=== PATIENT | female | born 1940 | race Caucasian/White ===

== ENCOUNTER → 2022-11-29 | Outpatient (CLI) | payer MEDICARE ==
[2022-11-29 16:19] LABS: INR 0.9 (<1.2); Prothrombin Time 10.1 sec (9.0-12.0)
[2022-11-30 02:27] LABS: ALT 35 U/L (8-44); AST 21 U/L (13-35); Albumin 4.7 d/dL (3.8-4.9); Albumin/Globulin Ratio 1.52 Ratio (1.60-3.17); Alkaline Phosphatase 113 U/L (41-126); BUN/Creat Ratio 20.29 Ratio (12.00-20.00); Blood Urea Nitrogen 14.2 mg/dL (9.0-27.0); Calcium 10.3 mg/dL (8.7-10.3); Carbon Dioxide 23.9 mmol/L (21.6-31.8); Chloride 106 mmol/L (96-109); Globulin 3.1 d/dL (1.6-3.3); Glucose 119 mg/dL (70-110); Potassium 4.6 mmol/L (3.5-5.5); Sodium 143 mmol/L (135-145); Total Bilirubin 0.5 mg/dL (0.3-1.2); Total Protein 7.8 d/dL (6.2-8.2)
[2022-11-30 02:29] LABS: HCT 39.1 % (37.2-46.3); HGB 12.3 d/dL (12.0-15.0); MCH 30.8 pg (27.0-32.0); MCHC 31.5 d/dL (32.0-37.0); Mean Platelet Volume 9.7 FL (9.5-12.2); NRBC Per 100 WBC 0 X 10*3/uL (0.00-0.01); Platelet Count 265 X 10*3/uL (140-440); RBC 3.99 X 10*6/uL (4.10-5.20); RDW 14.8 % (11.5-14.5); WBC 5.83 X 10*3/uL (4.50-10.00)
[2022-11-30 03:15] LABS: Appearance,Urine Cloudy (Clear); Bilirubin,Urine Negative (Negative); Blood,Urine Negative (Negative); Color,Urine Yellow (Yellow); Ketones,Urine Negative (Negative); Nitrite,Urine Negative (Negative); PH, Urine 7.5; Specific Gravity,Urine 1.014 (1.001-1.030); Urobilinogen,Urine 0.2 E.U./DL
== END | disposition home or self-care (01) ==
LOC: LABPAT 14:34
PROVIDERS: ATTEND Orthopaedic Surgery
DX: Z01.812 Encounter for preprocedural laboratory examination (principal); M17.11 Unilateral primary osteoarthritis, right knee
CPT/HCPCS: 80053; 81001; 85027; 85610; 85730

== ENCOUNTER → 2023-02-15 | Outpatient (CLI) | payer MEDICARE ==
[2023-02-15 15:18] LABS: INR 0.9 (<1.2); Partial Thromboplastin Time 23.7 sec (22.0-30.0); Prothrombin Time 9.7 sec (9.0-12.0)
[2023-02-15 20:52] LABS: HCT 39.1 % (37.2-46.3); HGB 12.3 d/dL (12.0-15.0); MCH 31.2 pg (27.0-32.0); MCHC 31.5 d/dL (32.0-37.0); MCV 99.2 FL (80.0-97.0); Mean Platelet Volume 9.7 FL (9.5-12.2); NRBC Per 100 WBC 0 X 10*3/uL (0.00-0.01); Platelet Count 284 X 10*3/uL (140-440); RBC 3.94 X 10*6/uL (4.10-5.20); RDW 14.3 % (11.5-14.5)
[2023-02-15 21:35] LABS: ALT 167 U/L (8-44); AST 86 U/L (13-35); Albumin 4.8 d/dL (3.8-4.9); Albumin/Globulin Ratio 1.41 Ratio (1.60-3.17); Alkaline Phosphatase 548 U/L (41-126); BUN/Creat Ratio 20.71 Ratio (12.00-20.00); Blood Urea Nitrogen 14.5 mg/dL (9.0-27.0); Calcium 10.9 mg/dL (8.7-10.3); Carbon Dioxide 23.2 mmol/L (21.6-31.8); Chloride 105 mmol/L (96-109); Globulin 3.4 d/dL (1.6-3.3); Glucose 126 mg/dL (70-110); Potassium 4.3 mmol/L (3.5-5.5); Sodium 142 mmol/L (135-145); Total Bilirubin 0.5 mg/dL (0.3-1.2); Total Protein 8.2 d/dL (6.2-8.2)
[2023-02-15 21:52] LABS: Appearance,Urine Clear (Clear); Bilirubin,Urine Negative (Negative); Blood,Urine Negative (Negative); Color,Urine Yellow (Yellow); Ketones,Urine Negative (Negative); Nitrite,Urine Negative (Negative); Specific Gravity,Urine 1.008 (1.001-1.030); Urobilinogen,Urine 0.2 E.U./DL
== END | disposition home or self-care (01) ==
LOC: LABPAT 11:53
PROVIDERS: ATTEND Orthopaedic Surgery
DX: Z01.812 Encounter for preprocedural laboratory examination (principal); M17.11 Unilateral primary osteoarthritis, right knee
CPT/HCPCS: 80053; 81003; 85027; 85610; 85730; 87070

== ENCOUNTER → 2023-09-26 | Outpatient (CLI) | payer MEDICARE ==
[2023-09-26 11:29] LABS: INR 0.9 (<1.2); Partial Thromboplastin Time 23.6 sec (22.0-30.0)
[2023-09-26 21:07] LABS: ALT 20 U/L (8-44); AST 21 U/L (13-35); Albumin 4.5 g/dL (3.8-4.9); Albumin/Globulin Ratio 1.41 Ratio (1.60-3.17); Alkaline Phosphatase 127 U/L (41-126); BUN/Creat Ratio 17.38 Ratio (12.00-20.00); Blood Urea Nitrogen 13.9 mg/dL (9.0-27.0); Calcium 10.5 mg/dL (8.7-10.3); Carbon Dioxide 24.8 mmol/L (21.6-31.8); Chloride 106 mmol/L (96-109); Globulin 3.2 g/dL (1.6-3.3); Glucose 108 mg/dL (70-110); Potassium 4.5 mmol/L (3.5-5.5); Sodium 142 mmol/L (135-145); Total Bilirubin 0.4 mg/dL (0.3-1.2); Total Protein 7.7 g/dL (6.2-8.2)
[2023-09-27 04:21] LABS: HCT 38.8 % (37.2-46.3); HGB 12.4 g/dL (12.0-15.0); MCH 31.3 pg (27.0-32.0); Mean Platelet Volume 9.5 FL (9.5-12.2); NRBC Per 100 WBC 0 X 10*3/uL (0.00-0.01); Platelet Count 261 X 10*3/uL (140-440); RBC 3.96 X 10*6/uL (4.10-5.20); RDW 13.3 % (11.5-14.5); WBC 3.73 X 10*3/uL (4.50-10.00)
== END | disposition home or self-care (01) ==
LOC: LABPAT 10:40
PROVIDERS: ATTEND Orthopaedic Surgery
DX: Z01.812 Encounter for preprocedural laboratory examination (principal); Z22.322 Carrier or suspected carrier of Methicillin resistant Staphylococcus aureus; M17.11 Unilateral primary osteoarthritis, right knee
CPT/HCPCS: 36415; 80053; 85027; 85610; 85730; 87070

== ENCOUNTER 2023-10-23 07:32 | Day surgery (SDC) | payer MEDICARE ==
[~2023-10-23 07:32] MED LIST: HYDROmorphone 0.5 MG/0.5 ML SYRINGE IVP PRN; LIDOCAINE 1% (10MG/ML) FOR IV START INTRADERMA PRN; TRANEXAMIC 1,000 MG/100ML-NACL 1,000 MG in SALINE 1 100ML.BAG IVPB PRN
[2023-10-23] MEDS: LACTATED RINGERS 1,000 ML IV SCH (07:56)
[2023-10-23 08:19] LABS: Glucose,Whole Blood 97 mg/dL (70-110)
[2023-10-23] MEDS: ONDANSETRON 4 MG/2 ML VIAL IVP ONE (08:29)
[2023-10-23] MEDS: GABAPENTIN 300 MG CAP PO PRN (08:29)
[2023-10-23] MEDS: ACETAMINOPHEN TAB 500 MG TAB PO PRN (08:29)
[2023-10-23] MEDS: MELOXICAM 7.5 MG TAB PO PRN (08:29)
[2023-10-23] MEDS: DEXAMETHASONE SOD PHOSPHATE 4 MG/ML 1 ML VIAL IVP ONE (08:29)
[2023-10-23] MEDS: MIDAZOLAM 2 MG/2 ML VIAL IVP ONE (08:39)
[2023-10-23] MEDS ORDERED: HYDROmorphone 0.5 MG/0.5 ML SYRINGE IVP PRN ×3 (08:50)
[2023-10-23] MEDS ORDERED: NA PHOS,M-B/NA PHOS,DI-BA 133 ML ENEMA RECTAL PRN (08:50)
[2023-10-23] MEDS ORDERED: MAGNESIUM HYDROXIDE 2,400 MG/30 ML CUP PO PRN (08:50)
[2023-10-23] MEDS ORDERED: bisacodyL 10 MG SUPP RECTAL PRN (08:50)
[2023-10-23] MEDS ORDERED: ONDANSETRON 4 MG/2 ML VIAL IVP PRN (08:50)
[2023-10-23] MEDS ORDERED: NALOXONE 0.4 MG/ML 1 ML VIAL IV PRN (08:50)
[2023-10-23] MEDS ORDERED: ROPIVACAINE 1,100 MG, SODIUM CHLORIDE 0.9% 500 ML 330 ML, EMPTY PAIN BALL 1 EACH MISCELLANE PRN (09:02)
--- NOTE | 2023-10-23 09:02 | P.ANPRN ---
Procedure Note - Anesthesia - Nerve Block Performed Right Adductor Canal Infusion Time Out Performed: Yes (837) Date of Procedure: 10/23/23 Location of Patient: PreOp Indication: Acute Post-Operative Pain, Dx/Pain Location (Right knee), Requested by Surgeon Specifically requested for management of pain by : Andres Porter Sedation Type: Sedate with meaningful contact maintained Preparation: Sterile Prep, Sterile Dressing Position: Supine Catheter: Indwelling Needle Types: Pajunk Needle Gauge: 18 Ultrasound used to visualize needle placement: Yes Ultrasound used to observe medication spread: Yes Injectate: 0.5% Ropivacaine (see comment for volume) (20 mL +10 mL of normal saline) Blood Aspirated: No Pain Paresthesia on Injection Noted: No Resistance on Injection: Normal Image Stored and Saved: Yes Events: Uneventful and Well Tolerated Right iPack Single Time Out Performed: Yes (837) Date of Procedure: 10/23/23 Location of Patient: PreOp Indication: Acute Post-Operative Pain, Dx/Pain Location (Right knee), Requested by Surgeon Specifically requested for management of pain by DrChristiano: Andres Porter Sedation Type: Sedate with meaningful contact maintained Preparation: Sterile Prep Position: Left Lateral Catheter: None Needle Types: Pajunk Needle Gauge: 21 (100 mm) Ultrasound used to visualize needle placement: Yes Ultrasound used to observe medication spread: Yes Injectate: 0.5% Ropivacaine (see comment for volume) (20 CC +10 mL of normal saline) Blood Aspirated: No Pain Paresthesia on Injection Noted: No Resistance on Injection: Normal Image Stored and Saved: Yes Events: Uneventful and Well Tolerated
[2023-10-23] MEDS ORDERED: MIDAZOLAM 2 MG/2 ML VIAL ONE (09:06)
[2023-10-23] MEDS ORDERED: SODIUM CHLORIDE 0.9% (PF) 10 ML VIAL ONE (09:06)
[2023-10-23] MEDS ORDERED: fentaNYL (PF) 50 MCG/ML 2 ML AMP ONE (09:06)
[2023-10-23] MEDS ORDERED: TRANEXAMIC 1,000 MG/100ML-NACL PREMIX BAG ONE (09:06)
[2023-10-23] MEDS ORDERED: ePHEDrine 50 MG/ML 1 ML VIAL ONE (09:06)
[2023-10-23] MEDS ORDERED: ROPIVACAINE 5 MG/ML 30 ML VIAL ONE (09:06)
[2023-10-23] MEDS: ceFAZolin 1,000 MG in SODIUM CHLORIDE 0.9% 1,000 ML IRRIGATION ONE (09:38)
--- NOTE | 2023-10-23 10:23 | P.OP ---
Date of Procedure: 10/23/23 Preoperative Diagnosis: severe osteoarthritis right knee Postoperative Diagnosis: severe osteoarthritis right knee Procedure(s) Performed: right total knee arthroplasty Implants: King [employer] Nephew Journey II CR Oxinium cruciate retaining femoral component size 5, right King [employer] Nephew Journey nonporous tibial baseplate size 4, right King [employer]hew Journey II, XLPE Deep Dished articular insert, size 9 mm, Size 3- 4, right King [employer] Nephew Journey Ela II resurfacing patellar component, oval, 29 mm All components were cemented using Palacos R bone cement The articulation is Oxinium on polyethylene Anesthesia: spinal Surgeon: Andres Porter Alligator Trapper #1: Lenka Fraser Estimated Blood Loss (ml): 50 Pathology: none sent Condition: stable Disposition: PACU Indications for Procedure: The patient's knee is end-stage, and conservative management has failed. The operation of knee replacement has been discussed at length in the office, as well as potential risks and complications. These are inclusive of, but not limited to: Infection, bleeding, scarring, discomfort, stiffness, blood vessel and nerve damage, need for further surgery, failure to relieve symptoms, persistence, recurrence, or worsening of problems, loosening, dislocation, wear, blood clot, pulmonary embolism, , gait dysfunction, stiffness, and other risks as discussed in the office. Patient elects to proceed and the consent form has been signed. Operative Findings: the operative findings are consistent with severe osteoarthritis of the right knee Description of Procedure: The patient was seen in the preoperative area, the consent was reviewed and the operative site was marked with a skin marker. The patient verified the procedure and the operative site. An adductor canal pain catheter and an iPACK block were placed by anesthesia in the preoperative area. The patient was then brought to the operating room and positioned on the operating room table in the supine position. Preoperative antibiotics and a gram of tranexamic acid were given intravenously. A spinal anesthetic was administered by the anesthesia department. Care was taken to make sure that all pressure points were adequately padded. A tourniquet was placed on the upper thigh and the lower extremity was prepped with ChloraPrep and draped in usual sterile fashion. A universal time-out was then performed which confirmed the patient's name, surgical site, ALLERGIES, and consent. The lower extremity was then exsanguinated and tourniquet was inflated to 250 mmHg. A standard anterior midline approach to the knee was performed. The skin and subcutaneous tissue were sharply dissected down to the patellar tendon. A medial parapatellar arthrotomy was then performed. The knee was then extended, the patellar was everted, and the knee was flexed. The infra-patellar fat pad was removed in order to enhance exposure. The anterior horns of both menisci were excised, and a release was performed to the posterior medial aspect of the knee. On gross visual inspection, there was complete loss of articular cartilage in the medial and patellofemoral joint spaces. There was also significant cartilage damage in the lateral compartment. There were multiple periarticular osteophytes globally about the knee which were then removed with a Ronguer. The femoral canal was then opened with the 9.5 mm intramedullary drill. The 8 mm intramedullary karrie was then inserted into the femoral canal with the distal femoral cutting guide set for 5 of valgus. The distal femoral cutting block was then pinned in place. The intramedullary karrie was then removed, and the distal femur was then cut. The cutting block was then removed and the cut was checked for symmetry. The resected bone was then measured to confirm the appropriate distal femoral resection. Next, the sizing guide was then placed and set for 3 external rotation based off of the epicondylar axis and [place]'s line. Pins were then placed and the drill holes, and the femur was sized with the sizing stylus. The pins were then removed, and the sizing guide was then removed. The spikes of the appropriate size femoral block was then placed into the predrilled holes, and malleted into place. Two 45 mm pins were then placed into the fixation holes on the cutting block. An molly wing was then used to ensure there would be no notching with the anterior cut. The anterior condyles were cut without notching. The anterior chord cut was then performed, followed by the posterior cut, posterior chamfer cut, and the anterior chamfer cut. The collateral ligaments were protected during the entire process. The cutting block was then removed. Any remaining bone and osteophytes were removed from the femur with a Ronguer. Attention was then directed to the tibia. The remaining ACL was removed with a Ronguer, and the tibia was then gently subluxed forward with a large bent knee retractor. Any remaining menisci were excised. The posterior lateral corner was cauterized in order to coagulate the lateral geniculate artery. The extra medullary tibial cutting guide was then placed, set for the appropriate rotation, slope, and depth of resection. The proximal tibia cutting guide was then pinned in place. Proximal tibia was then cut and sized. A curved osteotome was then used to remove any posterior osteophytes from the distal femur. The femoral trial was placed. A narrow saw blade was then used to remove the anterior intracondylar femoral bone. The CR notch trial was then placed. The tibial trial was placed with the appropriate-sized insert. The knee was able to fully extend and flex to 130 and was stable throughout all range of motion. The knee was then extended and the patella was everted. Patella was then measured, and then using an osteotomy guide, the patella was cut at the appropriate level. The patellar component was sized. The patellar drill guide was placed and the patella was drilled. The patella trial was then placed. The knee was then taken through range of motion with the patella trial and the patella tracked normally using the no thumbs technique. The patella trial was t hen removed. The knee was then flexed and lug holes were drilled through the femoral trial and the femoral trial was then removed. The tibial was then re- exposed, and the tibial broach guide was then pinned in place after it was set for the appropriate rotation to allow for the most coverage without overhang. The tibia was then reamed and broached. The femoral canal was plugged with autologous bone. The cut surfaces of bone were then irrigated with pulsatile lavage. The knee was also irrigated with Irrisept solution. The components were then opened, the cement was mixed. Cement was placed on the backside of the femoral, tibial, and patellar components. Cement was then applied to the tibial surface and pressurized into the surface using finger pressurization technique. The tibial component was then applied and excess cement was removed after it was impacted securely noted to be flush with the cut surface. In similar fashion, the cement was applied to the cut femoral surface, pressurized and using finger pressurization the component was impacted in place. Excess cement was removed. The polyethylene spacer was then implanted and locked into position. Patellar component was then applied in a similar technique and the patellar clamp was used to hold patella in place while the cement hardened. The knee was held in full extension while the cement hardened. Once the cement had fully hardened, the knee was reinspected. Any other cement extrusion was removed the final range of motion testing showed range of motion from 0-130 with excellent stability, both medial and laterally and appropriate alignment of the leg. Patella tracked normally. After the cemented hardened, the tourniquet was released and hemostasis was obtained. A second gram of transexamic acid was given intravenously. The knee was again irrigated. The knee was again taken through range of motion and found to be stable throughout all range of motion of 0-130, and the patella tracked normally. The fascia was then closed with 0 Vicryl followed by #2 strata fix suture. The subcutaneous tissue was closed with 3-0 Vicryl and 3-0 strata fix. Exofin glue was used for the skin and placed with the knee in flexion. After the glue had dried, and Optafoam silver impregnated dressing was applied. A lightly compressive dressing was applied using web roll and Renny wrap. Patient was then transferred to the stretcher and taken to recovery room in stable condition. Sponge and needle counts were correct. The assistant surveyor ABIGAIL Brink was required due the complexity surgery and the need for a skilled insurance assistant. She assisted in positioning, draping, retraction, and closure of the wound.
--- NOTE | 2023-10-23 11:21 | XR ---
EXAMINATION TYPE: XR knee limited RT DATE OF EXAM: 10/23/2023 COMPARISON: NONE TECHNIQUE: Two views submitted HISTORY: Post op FINDINGS: There is a prosthetic knee in near anatomic alignment. There is soft tissue edema and soft tissue e mphysema. IMPRESSION: 1. Postoperative change. Appears in near-anatomic alignment
[2023-10-23] MEDS: SODIUM CHLORIDE 0.9% 1,000 ML IV SCH (15:01)
[2023-10-23 16:57] LABS: Glucose,Whole Blood 160 mg/dL (70-110)
[2023-10-23] MEDS: HYDROcodone/APAP 7.5-325MG 1 EACH TAB PO PRN (17:37)
[2023-10-23 20:19] LABS: Glucose,Whole Blood 249 mg/dL (70-110)
[2023-10-23] MEDS: ASPIRIN 325 MG TAB PO SCH (20:43)
[2023-10-23] MEDS: SENNOSIDES-DOCUSATE SODIUM 1 EACH TAB PO SCH (20:43)
[2023-10-24 03:20] VITALS: TEMP 97.8
[2023-10-24 05:56] LABS: Glucose,Whole Blood 100 mg/dL (70-110)
--- NOTE | 2023-10-24 07:28 | P.PN ---
Progress Note - Text Progress Note Date: 10/24/23 Postoperative day # 1 status post total knee arthroplasty, on adductor canal perineural catheter placed for postoperative analgesia. Ropivacaine 0.2% 8 mL per hour through ON-Q pump continuous infusion. Pain is well controlled. On visual analog scale 2/10 Patient is taking PRN oral pain medications. Catheter site: Looks Ok. There is no erythema or tenderness. Continue with the current pain management plan and will follow.
[2023-10-24] MEDS: HYDROcodone/APAP 7.5-325MG 1 EACH TAB PO PRN (07:36)
[2023-10-24 09:18] LABS: Basophils # (A) 0.01 X 10*3/uL (0.00-0.10); Basophils % (A) 0.1 %; Eosinophils # (A) 0 X 10*3/uL (0.04-0.35); Eosinophils % (A) 0 %; HCT 29.1 % (37.2-46.3); HGB 9.4 g/dL (12.0-15.0); Lymphocytes # (A) 1.77 X 10*3/uL (0.90-5.00); Lymphocytes % (A) 24.3 %; MCH 31.8 pg (27.0-32.0); MCHC 32.3 g/dL (32.0-37.0); MCV 98.3 FL (80.0-97.0); Mean Platelet Volume 9.6 FL (9.5-12.2); Monocytes # (A) 0.55 X 10*3/uL (0.20-1.00); Monocytes % (A) 7.5 %; NRBC Per 100 WBC 0 X 10*3/uL (0.00-0.01); Neutrophils # (A) 4.93 X 10*3/uL (1.80-7.70); Neutrophils % (A) 67.7 %; Platelet Count 199 X 10*3/uL (140-440); RBC 2.96 X 10*6/uL (4.10-5.20); RDW 13.8 % (11.5-14.5); WBC 7.29 X 10*3/uL (4.50-10.00)
--- NOTE | 2023-10-24 09:49 | P.DS ---
Providers Expected date of discharge: 10/24/23 Attending physician: Andres Porter Consults: 10/23/23 08:50 Consult Physician Routine Consulting Provider: Linnea Jung Consult Reason/Comments: medical management Do you want consulting provider notified?: Yes Primary care physician: Josep Ramey - Discharge Diagnosis(es) (1) Osteoarthritis of right knee Current Visit: Yes Status: Acute (2) S/P total knee arthroplasty Current Visit: Yes Status: Acute Hospital Course: This is an 83-year-old female with known history of degenerative arthritis of the right knee. The patient presented for evaluation as an outpatient. After discussion and consideration patient elects to proceed with total knee arthroplasty. The patient is seen preoperatively by Dr. Porter and medically cleared for surgery by their primary care physician. Patient is admitted to [facility] on 10/23/2023 for total knee arthroplasty. The procedure is performed without complication or sequelae. The patient is doing well postoperatively. Labs and vital signs are stable on day of discharge. On day of discharge patient's knee incision is healing well. There is minimal erythema. There is no drainage noted at this time. There is minimal soft tissue swelling to the knee. Patient has full foot and ankle motion without difficulty or pain. Calf is soft and nontender to palpation. Neurovascular status to the right lower extremity is intact. Patient is discharged home in good condition. Please see med rec for accurate list of home medications. Plan - Discharge Summary Discharge Rx Participant: No New Discharge Prescriptions: New Aspirin 325 mg PO BID #60 tab HYDROcodone/APAP 7.5-325MG [[place] 7.5-325] 1 - 2 tab PO Q6H PRN #32 tab PRN Reason: Pain Sennosides [Senokot] 2 tab PO DAILY PRN #60 tablet PRN Reason: Constipation No Action Multivitamins, Thera [Multivitamin (formulary)] 1 tab PO DAILY Ibuprofen [Motrin] 600 mg PO Q6HR PRN PRN Reason: Pain metFORMIN HCL [Glucophage] 500 mg PO QAM Cetirizine HCl [Zyrtec] 10 mg PO DAILY Magnesium 250 mg PO DAILY Glucosamine HCl/Chondroitin Vieyra [Glucosamine-Chondroitin Cap] 2 each PO DAILY Menthol [Biofreeze] 1 spray TOPICAL DIRECTED PRN PRN Reason: Pain amLODIPine [Norvasc] 10 mg PO DAILY Levothyroxine Sodium [Synthroid] 88 mcg PO DAILY ALPRAZolam [Xanax] 0.25 mg PO TID PRN PRN Reason: Anxiety Fluticasone Nasal [place] [Flonase Nasal [place]] 2 spray EA NOSTRIL DAILY lisinopriL [Zestril] 40 mg PO DAILY Psyllium Husk [Metamucil] 0.4 gm PO DAILY [place]-3/Dha/Epa/Fish Oil [Fish Oil 1,000 mg Softgel] 3 each PO DAILY Lutein 20 mg PO DAILY K2d3 1 tab PO DAILY Garlic 1,000 mg PO DAILY Turmeric Root Extract [Turmeric] 500 mg PO DAILY Pumpkin Seed Oil 1 tab PO DAILY Discharge Medication List ALPRAZolam [Xanax] 0.25 mg PO TID PRN 12/12/22 [History] Cetirizine HCl [Zyrtec] 10 mg PO DAILY 12/12/22 [History] Fluticasone Nasal [place] [Flonase Nasal [place]] 2 spray EA NOSTRIL DAILY 12/12/22 [History] Garlic 1,000 mg PO DAILY 12/12/22 [History] Glucosamine HCl/Chondroitin Vieyra [Glucosamine-Chondroitin Cap] 2 each PO DAILY 12/12/22 [History] Ibuprofen [Motrin] 600 mg PO Q6HR PRN 12/12/22 [History] K2d3 1 tab PO DAILY 12/12/22 [History] Levothyroxine Sodium [Synthroid] 88 mcg PO DAILY 12/12/22 [History] Lutein 20 mg PO DAILY 12/12/22 [History] Magnesium 250 mg PO DAILY 12/12/22 [History] Multivitamins, Thera [Multivitamin (formulary)] 1 tab PO DAILY 12/12/22 [History] [place]-3/Dha/Epa/Fish Oil [Fish Oil 1,000 mg Softgel] 3 each PO DAILY 12/12/22 [History] Psyllium Husk [Metamucil] 0.4 gm PO DAILY 12/12/22 [History] amLODIPine [Norvasc] 10 mg PO DAILY 12/12/22 [History] lisinopriL [Zestril] 40 mg PO DAILY 12/12/22 [History] metFORMIN HCL [Glucophage] 500 mg PO QAM 12/12/22 [History] Menthol [Biofreeze] 1 spray TOPICAL DIRECTED PRN 05/22/24 [History] Pumpkin Seed Oil 1 tab PO DAILY 10/17/23 [History] Turmeric Root Extract [Turmeric] 500 mg PO DAILY 10/17/23 [History] Aspirin 325 mg PO BID #60 tab 10/23/23 [Rx] HYDROcodone/APAP 7.5-325MG [[place] 7.5-325] 1 - 2 tab PO Q6H PRN #32 tab 10/23/23 [Rx] Sennosides [Senokot] 2 tab PO DAILY PRN #60 tablet 10/23/23 [Rx] Follow up Appointment(s)/Referral(s): Andres Porter DO [Doctor of Osteopathic Medicine] - 2 Weeks Activity/Diet/Wound Care/Special Instructions: Weightbearing as tolerated with a walker. CPM 5-6h daily as tolerated. Leave dressing intact. Dressing may be removed by home care nurse or by patient in 7 days. Then change dressing twice daily until follow up. May shower with initial dressing intact and after removal. If dressing become saturated, please remove. Recommend use of compression stockings daily until follow up to help prevent swelling and blood clots. May remove at night before sleeping. Please take aspirin 325mg twice daily for 30 days to prevent blood clots. Please follow up with [facility] and call with any questions or concerns, . Discharge Disposition: HOME WITH HOME HEALTH SERVICES
[2023-10-24 09:51] VITALS: BP 132/66; PULSE 68; RESP 16
--- NOTE | 2023-10-24 13:26 | P.CONS ---
History of Present Illness - Reason for Consult Consult date: 10/24/23 Medical management - History of Present Illness History of present illness; patient 83-year-old lady with past medical history significant for hypertension, hyperlipidemia, hypothyroidism, diabetes presented to hospital for elective right total knee arthroplasty. Patient has been following up outpatient with orthopedic surgery for right knee pain. Patient has tried all conservative measures with therapy and steroid injections but patient pain continues to worsen. Decision was made to proceed with surgery on 10/22. Postoperatively internal medicine team were consulted for medical management REVIEW OF SYSTEMS: CONSTITUTIONAL: No fever, no malaise, no fatigue. HEENT: No recent visual problems or hearing problems. Denied any sore throat. CARDIOVASCULAR: No chest pain, orthopnea, PND, no palpitations, no syncope. PULMONARY: No shortness of breath, no cough, no hemoptysis. GASTROINTESTINAL: No diarrhea, no nausea, no vomiting, no abdominal pain. NEUROLOGICAL: No headaches, no weakness, no numbness. HEMATOLOGICAL: Denies any bleeding or petechiae. GENITOURINARY: Denies any burning micturition, frequency, or urgency. MUSCULOSKELETAL/RHEUMATOLOGICAL: Right knee pain ENDOCRINE: Denies any polyuria or polydipsia. The rest of the 14-point review of systems is negative. PHYSICAL EXAMINATION: GENERAL: The patient is alert and oriented x3, not in any acute distress. Well developed, well nourished. HEENT: Pupils are round and equally reacting to light. EOMI. No scleral icterus. No conjunctival pallor. Normocephalic, atraumatic. No pharyngeal erythema. No thyromegaly. CARDIOVASCULAR: S1 and S2 present. No murmurs, rubs, or gallops. PULMONARY: Chest is clear to auscultation, no wheezing or crackles. ABDOMEN: Soft, nontender, nondistended, normoactive bowel sounds. No palpable organomegaly. MUSCULOSKELETAL: Right knee surgical incision seen EXTREMITIES: No cyanosis, clubbing, or pedal edema. NEUROLOGICAL: Gross neurological examination did not reveal any focal deficits. SKIN: No rashes. Assessment and plan Right knee osteoarthritis s/p right total knee arthroplasty Hypertension Hyperlipidemia Hypothyroidism Diabetes mellitus Monitor vital signs Monitor CBC Monitor CMP Continue pain management per orthopedics Continue DVT prophylaxis per orthopedics Resume home meds PT and OT consulted Labs and medication were reviewed.. Continue same treatment. Continue with symptomatic treatment. Resume home medication. Monitor labs and vitals. DVT and GI prophylaxis. Further recommendations as per clinical course of the patient Dictation was produced using [email or web address] dictation software. please excuse any grammatical, word or spelling errors. Past Medical History Past Medical History: Diabetes Mellitus, Hyperlipidemia, Hypertension, O steoarthritis (OA), Thyroid Disorder Additional Past Medical History / Comment(s): hx. elevated liver enzymes related to taking statin which is currently on hold History of Any Multi-Drug Resistant Organisms: None Reported Past Surgical History: Heart Catheterization, Hernia Repair, Tubal Ligation Additional Past Surgical History / Comment(s): right CTS, colonoscopies, umbilical hernia repair, hemorroidectomy, right total knee, Past Anesthesia/Blood Transfusion Reactions: No Reported Reaction Additional Past Anesthesia/Blood Transfusion Reaction / Comm: no hx. blood transfusion reaction Past Psychological History: Anxiety Smoking Status: Never smoker Past Alcohol Use History: Occasional Past Drug Use History: None Reported - Past Family History Mother Family Medical History: No Reported History Medications and Allergies Home Medications Medication Instructions Recorded Confirmed Type ALPRAZolam [Xanax] 0.25 mg PO TID PRN 12/12/22 10/23/23 History Cetirizine HCl [Zyrtec] 10 mg PO DAILY 12/12/22 10/23/23 History Fluticasone Nasal [place] [Flonase 2 spray EA NOSTRIL DAILY 12/12/22 10/23/23 History Nasal [place]] Garlic 1,000 mg PO DAILY 12/12/22 10/23/23 History Glucosamine HCl/Chondroitin Vieyra 2 each PO DAILY 12/12/22 10/23/23 History [Glucosamine-Chondroitin Cap] Ibuprofen [Motrin] 600 mg PO Q6HR PRN 12/12/22 10/23/23 History K2d3 1 tab PO DAILY 12/12/22 10/23/23 History Levothyroxine Sodium [Synthroid] 88 mcg PO DAILY 12/12/22 10/23/23 History Lutein 20 mg PO DAILY 12/12/22 10/23/23 History Magnesium 250 mg PO DAILY 12/12/22 10/23/23 History Multivitamins, Thera [Multivitamin 1 tab PO DAILY 12/12/22 10/23/23 History (formulary)] [place]-3/Dha/Epa/Fish Oil [Fish Oil 3 each PO DAILY 12/12/22 10/23/23 History 1,000 mg Softgel] Psyllium Husk [Metamucil] 0.4 gm PO DAILY 12/12/22 10/23/23 History amLODIPine [Norvasc] 10 mg PO DAILY 12/12/22 10/23/23 History lisinopriL [Zestril] 40 mg PO DAILY 12/12/22 10/23/23 History metFORMIN HCL [Glucophage] 500 mg PO QAM 12/12/22 10/23/23 History Menthol [Biofreeze] 1 spray TOPICAL DIRECTED PRN 10/17/23 10/23/23 History Pumpkin Seed Oil 1 tab PO DAILY 10/17/23 10/23/23 History Turmeric Root Extract [Turmeric] 500 mg PO DAILY 10/17/23 10/23/23 History Aspirin 325 mg PO BID #60 tab 10/23/23 Rx HYDROcodone/APAP 7.5-325MG [[place] 1 - 2 tab PO Q6H PRN #32 tab 10/23/23 Rx 7.5-325] Sennosides [Senokot] 2 tab PO DAILY PRN #60 tablet 10/23/23 Rx Allergies Allergy/AdvReac Type Severity Reaction Status Date / Time amoxicillin [From Augmentin] Allergy rapid Verified 10/23/23 08:30 heart rate, shaky clavulanic acid Allergy rapid Verified 10/23/23 08:30 [From Augmentin] heart rate, shaky Physical Exam Vitals: Vital Signs Temp Pulse Resp BP Pulse Ox 10/24/23 08:00 97.8 F 68 16 132/66 98 10/24/23 01:55 97.8 F 72 14 115/63 95 10/23/23 19:51 97.6 F 89 17 125/71 96 10/23/23 15:29 87 131/79 96 10/23/23 15:14 104 H 122/74 96 10/23/23 14:59 61 97/61 94 L 10/23/23 14:44 62 108/66 95 10/23/23 14:29 72 130/72 96 10/23/23 14:15 82 119/69 98 10/23/23 13:59 97.5 F L 84 17 126/74 96 Intake and Output 10/23/23 10/24/23 10/24/23 22:59 06:59 14:59 Other: # Voids 2 3 Weight 67.7 kg Results CBC & Chem 7: 10/24/23 04:14 Labs: Abnormal Lab Results - Last 24 Hours (Table) 10/23/23 10/23/23 10/24/23 Range/Units 16:56 20:17 04:14 RBC 2.96 L (4.10-5.20) X 10*6/uL Hgb 9.4 L (12.0-15.0) g/dL Hct 29.1 L (37.2-46.3) % MCV 98.3 H (80.0-97.0) [place] Eosinophils # 0 L (0.04-0.35) X 10*3/uL POC Glucose (mg/dL) 160 H 249 H (70-110) mg/dL
== END 2023-10-24 12:13 | disposition home health service (06) ==
LOC: OR 07:32 → 4SSUR 10:44 → OR 10-24 12:13
PROVIDERS: ATTEND Orthopaedic Surgery
DX: M17.11 Unilateral primary osteoarthritis, right knee (principal); E03.9 Hypothyroidism, unspecified; E11.9 Type 2 diabetes mellitus without complications; E78.5 Hyperlipidemia, unspecified; F41.9 Anxiety disorder, unspecified; G89.18 Other acute postprocedural pain; I10 Essential (primary) hypertension; Z79.82 Long term (current) use of aspirin; Z79.84 Long term (current) use of oral hypoglycemic drugs; Z79.890 Hormone replacement therapy; Z79.899 Other long term (current) drug therapy; Z88.0 Allergy status to penicillin; Z88.1 Allergy status to other antibiotic agents; Z98.890 Other specified postprocedural states
CPT/HCPCS: 97161; 64999; 64448; 85025; 73560; 27447; C1713; C1776; C1751; J2250; J1100; J0690 ×3; J2405